=== PATIENT | female | born 2000 | race Caucasian/White ===

== ENCOUNTER 2023-08-05 18:42 | Emergency (ER) | payer OTHER, BC | END 2023-08-05 19:20 | disposition home or self-care (01) | LOC: ERS 18:42 | DX: S60.511A Abrasion of right hand, initial encounter (principal); S10.91XA Abrasion of unspecified part of neck, initial encounter; V40.5XXA Car driver injured in collision with pedestrian or animal in traffic accident, initial encounter | CPT/HCPCS: 99284 ==